=== PATIENT | female | born 1990 | race African-American/Black ===

== ENCOUNTER 2016-12-10 20:35 | Emergency (ER) | payer OTHER ==
[2016-12-10 20:45] VITALS: TEMP 97.8; BMI 25.3
--- NOTE | 2016-12-10 21:40 | PDOC ---
History of Present Illness - General History Source: Patient Exam Limitations: No Limitations - History of Present Illness Initial Comments: 12/10/16 22:06 The patient is a 26 year old female with a significant PMH of hypertension and asthma who presents to the emergency department with RLQ abdominal pain beginning at approximately 3:30PM today. She describes the abdominal pain as simultaneously sharp, pressuring, and cramping, at a 5/10 in severity at the time of exam. Patient notes that her abdominal pain was as high as 8/10 in severity earlier in the day. Patient denies radiation of the abdominal pain. She reports feeling the same pain last week, but decided not to visit the ER then. The patient reports daily control use that she started a few months ago. The patient denies vaginal bleeding or discharge. She notes that she has had multiple menstrual periods within the past month and a half. The patient denies chest pain, shortness of breath, headache and dizziness. Denies fever, chills, nausea, vomit, diarrhea and constipation. Denies dysuria, frequency, urgency and hematuria. Allergies: NKA Social history: Occasional alcohol use. No cigarette use. <Jose Luis Gallardo - Last Filed: 12/10/16 22:08> <Lauro Stone - Last Filed: 12/11/16 01:16> - General Chief Complaint: Pain Stated Complaint: PAIN IN LOWER ABDOMAN Time Seen by Provider: 12/10/16 21:34 Past History <Jose Luis Gallardo - Last Filed: 12/10/16 22:08> - Past Medical History Asthma: Yes Cardiac Disorders: Yes (PALPITATIONS) HTN: Yes (NO MEDS) Psychiatric Problems: Yes (NO MED) - Immunization History Td Vaccination: Yes Immunization Up to Date: Yes - Psycho/Social/Smoking Cessation Hx Anxiety: Yes Suicidal Ideation: No Smoking Status: No Smoking History: Never smoked Years of Tobacco Use: 0 Have you smoked in the past 12 months: No Number of Cigarettes Smoked Daily: 0 Cigars Per Day: 0 Information on smoking cessation initiated: No Hx Alcohol Use: No Drug/Substance Use Hx: No Substance Use Type: None <Lauro Stone - Last Filed: 12/11/16 01:16> - Past Medical History Allergies/Adverse Reactions: Allergies Allergy/AdvReac Type Severity Reaction Status Date / Time No Known Allergies Allergy Verified 12/10/16 20:45 Home Medications: Ambulatory Orders NK [No Known Home Medication] 12/11/16 Review of Systems - Review of Systems Comments:: 12/10/16 22:07 CONSTITUTIONAL: No fever, no chills, no fatigue EYES: No visual changes ENT: No ear pain, no sore throat CARDIOVASCULAR: No chest pain, no palpitations RESPIRATORY: No cough, no SOB GI: (+)RLQ abdominal pain. No nausea, no vomiting, no constipation, no diarrhea GENITOURINARY: No dysuria, no frequency, no hematuria MUSKULOSKELETAL: No backpain, no joint pain, no myalgias SKIN: No rash NEURO: No headache <Jose Luis Gallardo - Last Filed: 12/10/16 22:08> *Physical Exam - Vital Signs Last Vital Signs Temp Pulse Resp BP Pulse Ox 97.8 F 59 L 16 157/106 99 12/10/16 20:39 12/10/16 20:39 12/10/16 20:39 12/10/16 20:39 12/10/16 20:39 - Physical Exam Comments: 12/10/16 22:07 CONSTITUTIONAL: Well-appearing; well-nourished; in no apparent distress HEAD: Normocephalic; atraumatic EYES: PERRL; EOM intact ENMT: External appears normal; normal oropharynx NECK: Supple; non-tender; no cervical lymphadenopathy CARD: Normal S1, S2; no murmurs, rubs, or gallops RESP: Normal chest excursion with respiration; breath sounds clear and equal bilaterally; no wheezes, rhonchi, or rales ABD: (+) Minimal RLQ tenderness to palpation. Soft, non-distended; no palpable organomegaly, no palpable hernias EXT: Normal ROM in all four extremities; non-tender to palpation; distal pulses intact SKIN: Warm, dry, no rash NEURO: No focal neurological deficiencies. <Jose Luis Gallardo - Last Filed: 12/10/16 22:08> - Vital Signs Last Vital Signs Temp Pulse Resp BP Pulse Ox 97.8 F 59 L 16 157/106 99 12/10/16 20:39 12/10/16 20:39 12/10/16 20:39 12/10/16 20:39 12/10/16 20:39 <Lauro Stone - Last Filed: 12/11/16 01:16> ED Treatment Course - LABORATORY CBC & Chemistry Diagram: 12/10/16 22:00 12/10/16 22:00 <Lauro Stone - Last Filed: 12/11/16 01:16> Medical Decision Making - Medical Decision Making 12/11/16 01:12 26-year-old female presents to the ER with atraumatic right lower pelvic pain without associated nausea /vomiting/diarrhea/dysuria/vaginal bleeding. In the ER , patient is awake and alert, afebrile, nontoxic appearing. Initial evaluation revealed minimal right lower pelvic tenderness to deep palpation. Administration of IV Toradol, patient is asymptomatic and repeat abdominal exam reveals no focal tenderness. CBC/CMP within normal limit. Urinalysis reveals 18 RBCs per high-power field but no evidence of pyuria. Transvaginal ultrasound reveals no evidence of ovarian torsion. I do not suspect acute appendicitis at this time. Will discharge with abdominal pain instructions with [facility] follow- up. Initial evaluation, patient was noted to be hypertensive which improved after a period of observation. Patient will be instructed to follow-up further evaluation and treatment. <Lauro Stone - Last Filed: 12/11/16 01:16> *DC/Admit/Observation/Transfer - Attestations Scribe Attestion: 12/10/16 22:07 Documentation prepared by Jose Luis Gallardo, acting as medical technologist chief for Lauro Stone MD. <Jose Luis Gallardo - Last Filed: 12/10/16 22:08> - Attestations Physician Attestion: 12/11/16 01:11 The documentation was prepared by the scribe under my direct supervision. I have reviewed the documentation which correctly represents the findings, medical decision-making and critical action taken by me. <Lauro Stone - Last Filed: 12/11/16 01:16> Diagnosis at time of Disposition: Abdominal pain Qualifiers: Abdominal location: right lower quadrant Qualified Code(s): R10.31 - Right lower quadrant pain Hypertension Qualifiers: Hypertension type: essential hypertension Qualified Code(s): I10 - Essential ( primary) hypertension - Discharge Dispostion Disposition: HOME Condition at time of disposition: Stable - Referrals Referrals: [facility], one week [Other] - Patient Instructions Printed Discharge Instructions: DI for Abdominal Pain-Adult, High Blood Pressure - Post Discharge Activity Work/School Note: Back to Work
[2016-12-10] MEDS ORDERED: KETOROLAC TROMETHAMINE 30 MG/1 ML VIAL IVPUSH ONE (21:53)
[2016-12-10] MEDS ORDERED: KETOROLAC TROMETHAMINE 30 MG/1 ML VIAL ONE (22:14)
[2016-12-10 22:42] LABS: URINE APPEARANCE SLCLOUDY; URINE BILIRUBIN NEGATIVE (NEGATIVE); URINE BLOOD 2+ (NEGATIVE); URINE COLOR YELLOW; URINE GLUCOSE (UA) NEGATIVE (NEGATIVE); URINE KETONE TRACE (NEGATIVE); URINE NITRITE NEGATIVE (NEGATIVE); URINE PROTEIN NEGATIVE (NEGATIVE); URINE UROBILINOGEN NEGATIVE mg/dL (0.2-1.0)
[2016-12-10 22:44] LABS: URINE LEUK ESTERASE 1+ (NEGATIVE)
[2016-12-10 22:45] LABS: BASOPHIL 0.5 % (0-2.0); EOSINOPHIL 0.4 % (0-4.5); MCH 31.9 pg (25.7-33.7); MCHC 33.8 g/dl (32.0-36.0); MEAN CELL VOLUME 94.2 fl (80-96); MEAN PLT VOLUME 8.7 fl (7.5-11.1); NEUTROPHILS 62.3 % (42.8-82.8); PLATELET COUNT 208 K/MM3 (134-434); RDW 14.5 % (11.6-15.6); WHITE BLOOD COUNT 7.4 K/mm3 (4.0-10.0)
[2016-12-10 22:56] LABS: URINE BACTERIA RARE /hpf (NONE SEEN); URINE MUCUS FEW; URINE RBC 18 /hpf (0-3); URINE WBC 5 /hpf (3-5)
[2016-12-10 23:02] LABS: ALBUMIN 3.6 g/dl (3.4-5.0); ALK PHOS 46 U/L (45-117); ANION GAP 9 (8-16); BILIRUBIN,TOTAL 0.4 mg/dL (0.2-1.0); CALCIUM 9.3 mg/dL (8.5-10.1); CO2 27 mmol/L (21-32); CREATININE 0.9 mg/dL (0.55-1.02); GLUCOSE,RANDOM 80 mg/dL (74-106); SGOT/AST 27 U/L (15-37); SGPT/ALT 33 U/L (12-78); TOT PROT 7.2 g/dl (6.4-8.2)
[2016-12-11 00:42] VITALS: BP 145/88; PULSE 50
== END 2016-12-11 01:19 | disposition home or self-care (01) ==
LOC: JER 20:35
PROC: 3E0333Z Introduction of Anti-inflammatory into Peripheral Vein, Percutaneous Approach (ICD-10-PCS; principal; 2016-12-10)
DX: I10 Essential (primary) hypertension (principal); J45.909 Unspecified asthma, uncomplicated; F41.9 Anxiety disorder, unspecified
CPT/HCPCS: 36415; 76830-TC; 80053; 81003; 81015; 84703; 85025; 87086; 87186; 99282-25

== ENCOUNTER 2017-01-09 12:29 | Emergency (ER) | payer OTHER ==
[2017-01-09 12:44] VITALS: TEMP 98.1; BMI 28.2
--- NOTE | 2017-01-09 12:50 | PDOC ---
History of Present Illness - General History Source: Patient Exam Limitations: No Limitations - History of Present Illness Initial Comments: 01/09/17 13:14 The patient is a 26 year old female, with a significant past medical history of hypertension and anxiety, who presents to the emergency department complaining of a headache since approximately 16:00 yesterday. The patient reports her headache is localized frontally and is nonradiating. Patient states she thinks her headaches are caused, because of her elevated blood pressure. Patient reports her last blood pressure reading was 150/125 yesterday evening. Patient does not recall what blood pressure meds she is supposed to be on and has not taken anything for her headache. She denies any associated dizziness, lightheadedness, changes in vision, or ear pain. She denies any chest pain, shortness of breath, diaphoresis, or palpitations. She denies any abdominal pain , nausea, vomiting, diarrhea, constipation, or changes in urination patterns. She does not report any recent stressors. Patient is on control and her last menstrual period was 2 weeks ago. She denies any recent travel or sick contacts. Allergies: NKDA Past Surgical History: None reported. Social History: Social ETOH use. Non smoker or recreational drug use. <Paz Neumann - Last Filed: 01/09/17 13:17> <hCuy Garrett - Last Filed: 01/09/17 15:52> - General Chief Complaint: Blood Pressure Problem Stated Complaint: HEADACHE/BP Time Seen by Provider: 01/09/17 12:47 Past History <Paz Neumann - Last Filed: 01/09/17 13:17> - Past Medical History Asthma: Yes Cardiac Disorders: Yes (PALPITATIONS) HTN: Yes (WAS TAKING METROPROLOL) Psychiatric Problems: Yes (NO MED) - Immunization History Td Vaccination: Yes Immunization Up to Date: Yes - Psycho/Social/Smoking Cessation Hx Anxiety: Yes Suicidal Ideation: No Smoking Status: No Smoking History: Never smoked Years of Tobacco Use: 0 Have you smoked in the past 12 months: No Number of Cigarettes Smoked Daily: 0 Cigars Per Day: 0 Information on smoking cessation initiated: No Hx Alcohol Use: Yes (BEER) Drug/Substance Use Hx: No Substance Use Type: None <Chuy Garrett - Last Filed: 01/09/17 15:52> - Past Medical History Allergies/Adverse Reactions: Allergies Allergy/AdvReac Type Severity Reaction Status Date / Time No Known Allergies Allergy Verified 01/09/17 12:44 Home Medications: Ambulatory Orders NK [No Known Home Medication] 12/11/16 Review of Systems - Review of Systems Able to Perform ROS?: Yes Comments:: 01/09/17 13:14 GENERAL/CONSTITUTIONAL: No fever or chills. No weakness. HEAD, EYES, EARS, NOSE AND THROAT: No change in vision. No ear pain or discharge. No sore throat. CARDIOVASCULAR: No chest pain or shortness of breath. RESPIRATORY: No cough, wheezing, or hemoptysis. GASTROINTESTINAL: No nausea, vomiting, diarrhea or constipation. GENITOURINARY: No dysuria, frequency, or change in urination. MUSCULOSKELETAL: No joint or muscle swelling or pain. No neck or back pain. SKIN: No rash NEUROLOGIC: Yes: +headache. No vertigo, loss of consciousness, or change in strength/sensation. ENDOCRINE: No increased thirst. No abnormal weight change. HEMATOLOGIC/LYMPHATIC: No anemia, easy bleeding, or history of blood clots. ALLERGIC/IMMUNOLOGIC: No hives or skin allergy. <Paz Neumann - Last Filed: 01/09/17 13:17> *Physical Exam - Vital Signs Last Vital Signs Temp Pulse Resp BP Pulse Ox 98.1 F 65 18 142/90 98 01/09/17 12:42 01/09/17 12:42 01/09/17 12:42 01/09/17 12:42 01/09/17 12:42 - Physical Exam Comments: 01/09/17 13:15 GENERAL: Awake, alert, and fully oriented, in no acute distress HEAD: No signs of trauma EYES: PERRLA, EOMI, sclera anicteric, conjunctiva clear ENT: Auricles normal inspection, hearing grossly normal, nares patent, oropharynx clear without exudates. Moist mucosa NECK: Normal ROM, supple, no lymphadenopathy, JVD, or masses LUNGS: Breath sounds equal, clear to auscultation bilaterally. No wheezes, and no crackles HEART: Regular rate and rhythm, normal S1 and S2, no murmurs, rubs or gallops ABDOMEN: Soft, nontender, normoactive bowel sounds. No guarding, no rebound. No masses EXTREMITIES: Normal range of motion, no edema. No clubbing or cyanosis. No cords, erythema, or tenderness NEUROLOGICAL: Cranial nerves II through XII grossly intact. Normal speech, normal gait SKIN: Warm, Dry, normal turgor, no rashes or lesions noted. <Paz Neumann - Last Filed: 01/09/17 13:17> - Vital Signs Last Vital Signs Temp Pulse Resp BP Pulse Ox 98.1 F 65 18 142/90 98 01/09/17 12:42 01/09/17 12:42 01/09/17 12:42 01/09/17 12:42 01/09/17 12:42 <Chuy Garrett - Last Filed: 01/09/17 15:52> ED Treatment Course - LABORATORY CBC & Chemistry Diagram: 01/09/17 13:34 01/09/17 13:24 <Chuy Garrett - Last Filed: 01/09/17 15:52> Medical Decision Making - Medical Decision Making All diagnostics WNL, BP Improved with Catapress (0.2) Will write for prn Catapress until she can see her doctor next week (today is Thursday) 01/09/17 15:48 <Chuy Garrett - Last Filed: 01/09/17 15:52> *DC/Admit/Observation/Transfer - Attestations Scribe Attestion: 01/09/17 13:15 Documentation prepared by Paz Neumann, acting as medical photographer for Chuy Garrett DO. <Paz Neumann - Last Filed: 01/09/17 13:17> - Discharge Dispostion Admit: No - Attestations Physician Attestion: 01/09/17 12:50 I, Dr. Chuy Garrett, attest that this document has been prepared under my direction and personally reviewed by me in its entirety. I further attest, that it accurately reflects all work, treatment, procedures and medical decision -making performed by me. <Chuy Garrett - Last Filed: 01/09/17 15:52> Diagnosis at time of Disposition: Uncontrolled hypertension, Anxiety - Discharge Dispostion Disposition: HOME Condition at time of disposition: Improved - Patient Instructions Printed Discharge Instructions: DI for High Blood Pressure Additional Instructions: Nohelia- Sorry that you do not feel well and your pressure is up. Use the catapress only if your BP is high and you have a headache. See your doctor next week for BP medication. Return to us if any problems. Michael- Dr. Chuy Garrett
[2017-01-09] MEDS ORDERED: cloNIDine HCL 0.1 MG TABLET PO ONE (13:20)
[2017-01-09 13:46] LABS: BASOPHIL 0.7 % (0-2.0); EOSINOPHIL 1.2 % (0-4.5); MCH 31.4 pg (25.7-33.7); MCHC 33.5 g/dl (32.0-36.0); MEAN CELL VOLUME 93.7 fl (80-96); NEUTROPHILS 60.9 % (42.8-82.8); PLATELET COUNT 180 K/MM3 (134-434); RDW 13.5 % (11.6-15.6); WHITE BLOOD COUNT 6.9 K/mm3 (4.0-10.0)
[2017-01-09 13:52] LABS: URINE APPEARANCE SLCLOUDY; URINE BILIRUBIN NEGATIVE (NEGATIVE); URINE BLOOD 2+ (NEGATIVE); URINE COLOR YELLOW; URINE GLUCOSE (UA) NEGATIVE (NEGATIVE); URINE KETONE NEGATIVE (NEGATIVE); URINE LEUK ESTERASE NEGATIVE (NEGATIVE); URINE NITRITE NEGATIVE (NEGATIVE); URINE PROTEIN NEGATIVE (NEGATIVE); URINE UROBILINOGEN NEGATIVE mg/dL (0.2-1.0)
[2017-01-09 14:21] LABS: ALBUMIN 3.3 g/dl (3.4-5.0); ANION GAP 10 (8-16); BILIRUBIN,TOTAL 0.6 mg/dL (0.2-1.0); CALCIUM 8.5 mg/dL (8.5-10.1); CO2 24 mmol/L (21-32); CREATININE 0.8 mg/dL (0.55-1.02); GLUCOSE,RANDOM 85 mg/dL (74-106); SGOT/AST 20 U/L (15-37); SGPT/ALT 34 U/L (12-78); TOT PROT 6.4 g/dl (6.4-8.2)
[2017-01-09 14:23] LABS: ALK PHOS 43 U/L (45-117); CPK 81 IU/L (26-192); TROPONIN I < 0.02 ng/ml (0.00-0.05)
[2017-01-09 14:28] LABS: URINE MUCUS RARE; URINE RBC 9 /hpf (0-3); URINE WBC 1 /hpf (3-5)
[2017-01-09] MEDS ORDERED: cloNIDine HCL 0.1 MG TABLET ONE (14:31)
[2017-01-09 22:51] VITALS: BP 117/64; PULSE 74
--- NOTE | 2017-01-10 09:25 | EKG ---
Test Reason : Blood Pressure : / mmHG Vent. Rate : 061 BPM Atrial Rate : 061 BPM P-R Int : 168 ms QRS Dur : 094 ms QT Int : 448 ms P-R-T Axes : 061 -18 -03 degrees QTc Int : 450 ms NORMAL SINUS RHYTHM WITH SINUS ARRHYTHMIA INCOMPLETE RIGHT BUNDLE BRANCH BLOCK T WAVE ABNORMALITY, CONSIDER ANTERIOR ISCHEMIA T WAVE ABNORMALITY, CONSIDER INFERIOR ISCHEMIA ABNORMAL ECG WHEN COMPARED WITH ECG OF 15-MAY-2011 05:17, NO SIGNIFICANT CHANGE WAS FOUND Confirmed by MD KURTIS, MIAN ([id number]) on 01/10/2017 9:24:33 AM Referred By: Confirmed By:MIAN HULL MD
== END 2017-01-09 16:00 | disposition home or self-care (01) ==
LOC: JER 12:29
DX: I10 Essential (primary) hypertension (principal); F41.9 Anxiety disorder, unspecified; J45.909 Unspecified asthma, uncomplicated; R00.2 Palpitations
CPT/HCPCS: 36415; 71010-TC; 80053; 81003; 81015; 84484; 84703; 85025; 93005; 93010; 99284-25

== ENCOUNTER 2017-02-11 17:54 | Emergency (ER) | payer OTHER ==
[2017-02-11 17:59] VITALS: BMI 22.6
--- NOTE | 2017-02-11 20:19 | PDOC ---
*Physical Exam - Vital Signs Last Vital Signs Temp Pulse Resp BP Pulse Ox 98.4 F 70 18 147/106 99 02/11/17 17:57 02/11/17 17:57 02/11/17 17:57 02/11/17 17:57 02/11/17 17:57 ED Treatment Course - LABORATORY CBC & Chemistry Diagram: 02/11/17 20:47 02/11/17 20:47 Medical Decision Making - Medical Decision Making 02/12/17 01:09 Pt seen by the Advanced Practice Provider under my direct supervision Ancillary studies reviewed I agree with plan as outlined by the Advanced Practice Provider In summary, 26-year-old female presents with 1 week of vomiting associated with epigastric burning sensation. Patient reports one episode of blood-tinged emesis after 5 episodes of vomiting earlier today consistent with krystal mcgee tear. Otherwise emesis is nonbloody and nonbilious. Patient denies any diarrhea. Had a normal bowel movement today. She reports multiple episodes of similar symptoms in the past that have been attributed to GERD and gastritis per her report. On my evaluation, patient is well-appearing, still complaining of nausea but with no complaints of abdominal pain. Abdominal exam is completely benign with no tenderness to palpation. Given her persistent nausea despite zofran, I ordered reglan after which she reports nausea is greatly improved. She passed PO challenge. Will discharge to follow up with her primary care doctor. She reports she has an appointment with GI in 2 weeks as well. *DC/Admit/Observation/Transfer Diagnosis at time of Disposition: Dehydration, mild Nausea & vomiting Qualifiers: Qualified Code(s): R11.2 - Nausea with vomiting, unspecified - Discharge Dispostion Disposition: HOME - Prescriptions Prescriptions: Sucralfate [Carafate -] 1 gm PO QID #20 tablet - Patient Instructions Printed Discharge Instructions: DI for Gastroesophageal Reflux Disease (GERD) Additional Instructions: follow up with your GI doctor as soon as possible. take carafate as prescribed. drink plenty of fluids. - Post Discharge Activity Forms/Work/School Notes: Back to Work
[2017-02-11] MEDS ORDERED: FAMOTIDINE 20 MG/50 ML IVPB 50 ML IVPB ONE ×2 (20:39→20:51)
[2017-02-11] MEDS ORDERED: SODIUM CHLORIDE 1,000 ML IV STA (20:39)
[2017-02-11] MEDS ORDERED: ONDANSETRON 4 MG/2 ML VIAL IVPB ONE (20:39)
--- NOTE | 2017-02-11 20:40 | PDOC ---
History of Present Illness - General Chief Complaint: Pain Stated Complaint: VOMITING WITH BLOOD Time Seen by Provider: 02/11/17 20:12 History Source: Patient - History of Present Illness Initial Comments: 02/11/17 20:55 26 year old female Complaining of vomiting for one week with epigastric/chest burning, and blood tinged vomitus, generalized abdominal discomfort. Patient denies constipation or diarrhea last bowel movement normal. Denies headache dizziness urinary symptoms. Patient has a history of GERD and hypertension. Currently on Zantac, unable to take Zantac due to the vomiting. LMP 2 weeks ago. Past History - Past Medical History Allergies/Adverse Reactions: Allergies Allergy/AdvReac Type Severity Reaction Status Date / Time No Known Allergies Allergy Verified 02/11/17 17:59 Home Medications: Ambulatory Orders Clonidine HCl [Catapres] 0.2 mg PO TID #30 tablet 01/09/17 Sucralfate [Carafate -] 1 gm PO QID #20 tablet 02/12/17 Asthma: Yes Cardiac Disorders: Yes (PALPITATIONS) HTN: Yes (WAS TAKING METROPROLOL) Psychiatric Problems: Yes (NO MED) - Immunization History Td Vaccination: Yes Immunization Up to Date: Yes - Suicide/Smoking/Psychosocial Hx Smoking Status: No Smoking History: Never smoked Years of Tobacco Use: 0 Have you smoked in the past 12 months: No Number of Cigarettes Smoked Daily: 0 Cigars Per Day: 0 Information on smoking cessation initiated: No Hx Alcohol Use: No Drug/Substance Use Hx: No Substance Use Type: None Review of Systems - Review of Systems Able to Perform ROS?: Yes Is the patient limited Frisian proficient: No Constitutional: No: Symptoms Reported, See HPI, Chills, Diaphoresis, Fever, Loss of Appetite, Malaise, Night Sweats, Weakness, Weight Stable, Unintentional Wgt. Loss, Unexplained wgt Loss, Other Respiratory: No: Symptoms reported, See HPI, Cough, Orthopnea, Shortness of Breath, SOB with Exertion, SOB at Rest, Stridor, Wheezing, Productive cough, Hemoptysis, Other Cardiac (ROS): Yes: Chest Pain. No: Symptoms Reported, See HPI, Edema, Irregular Heart Rate, Lightheadedness, Palpitations, Syncope, Chest Tightness, Other ABD/GI: Yes: Nausea, Vomiting, Abdominal cramping, Other (bloos streaked vomitus ). No: Symptoms Reported, See HPI, Abdominal Distended, Abd. Pain w/ defecation , Blood Streaked Bowels, Constipated, Diarrhea, Difficulty Swallowing, Poor Appetite, Poor Fluid Intake, Rectal Bleeding, Indigestion, Tarry Stools : No: Symptoms Reported, See HPI, Burning, Dysuria, Discharge, Frequency, Flank Pain, Hematuria, Incontinence, Pain, Urgency, Testicular Mass, Testicular Swelling, Lesions, Testicular Pain, Other Integumentary: No: Symptoms Reported, See HPI, Bruising, Change in Color, Change in Hair/Nails, Dryness, Erythema, Flushing, Lesions, Lumps, Pallor, Pruritus, Rash, Sweating, Other *Physical Exam - Vital Signs Last Vital Signs Temp Pulse Resp BP Pulse Ox 98.4 F 70 18 147/106 99 02/11/17 17:57 02/11/17 17:57 02/11/17 17:57 02/11/17 17:57 02/11/17 17:57 - Physical Exam General Appearance: Yes: Appropriately Dressed Respiratory/Chest: positive: Lungs Clear, Normal Breath Sounds Cardiovascular: positive: Regular Rhythm, Regular Rate Gastrointestinal/Abdominal: positive: Tender (generalized), Soft, Increased Bowel Sounds Extremity: positive: Normal Capillary Refill, Normal Inspection Integumentary: positive: Normal Color, Dry, Warm Neurologic: positive: Fully Oriented, Alert, Normal Mood/Affect ED Treatment Course - LABORATORY CBC & Chemistry Diagram: 02/11/17 20:47 02/11/17 20:47 Progress Note - Progress Note Progress Note: A: GERD nausea and vomiting P: cbc cmp ua hcg pepcid, antiemetics carafate Medical Decision Making - Medical Decision Making 02/11/17 23:02 no abdominal tenderness. reports slight nausea. improved. will give reglan and carafate and reevaluate. 02/12/17 01:06 tolerated PO. reports feeling better. will d/c home *DC/Admit/Observation/Transfer Diagnosis at time of Disposition: Dehydration, mild Nausea & vomiting Qualifiers: Vomiting type: unspecified Vomiting Intractability: non-intractable Qualified Code(s): R11.2 - Nausea with vomiting, unspecified - Discharge Dispostion Disposition: HOME - Prescriptions Prescriptions: Sucralfate [Carafate -] 1 gm PO QID #20 tablet - Patient Instructions Printed Discharge Instructions: DI for Gastroesophageal Reflux Disease (GERD) Additional Instructions: follow up with your GI doctor as soon as possible. take carafate as prescribed. drink plenty of fluids. - Post Discharge Activity Forms/Work/School Notes: Back to Work
[2017-02-11] MEDS ORDERED: ONDANSETRON 4 MG/2 ML VIAL ONE (20:50)
[2017-02-11 20:54] LABS: BASOPHIL 0.3 % (0-2.0); EOSINOPHIL 0.1 % (0-4.5); MCH 31.8 pg (25.7-33.7); MCHC 34.2 g/dl (32.0-36.0); MEAN CELL VOLUME 92.9 fl (80-96); MEAN PLT VOLUME 7.9 fl (7.5-11.1); NEUTROPHILS 86.6 % (42.8-82.8); PLATELET COUNT 274 K/MM3 (134-434); RDW 13.3 % (11.6-15.6); WHITE BLOOD COUNT 9.3 K/mm3 (4.0-10.0)
[2017-02-11 21:19] LABS: ALBUMIN 3.9 g/dl (3.4-5.0); ALK PHOS 55 U/L (45-117); ANION GAP 11 (8-16); BILIRUBIN,TOTAL 1.6 mg/dL (0.2-1.0); CALCIUM 9.4 mg/dL (8.5-10.1); CO2 27 mmol/L (21-32); GLUCOSE,RANDOM 101 mg/dL (74-106); SGOT/AST 26 U/L (15-37); SGPT/ALT 41 U/L (12-78); TOT PROT 7.8 g/dl (6.4-8.2)
[2017-02-11] MEDS ORDERED: METOCLOPRAMIDE HCL INJECTION 10 MG/2 ML VIAL IVPB ONE (22:50)
[2017-02-11] MEDS ORDERED: SODIUM CHLORIDE 0.9% 500 ML INFUS.BAG IV ONE (22:51)
[2017-02-11] MEDS ORDERED: SUCRALFATE 1 GM TABLET (FP) PO ONE (23:15)
[2017-02-11] MEDS ORDERED: METOCLOPRAMIDE HCL INJECTION 10 MG/2 ML VIAL ONE (23:22)
[2017-02-11] MEDS ORDERED: SUCRALFATE 1 GM TABLET (FP) ONE (23:22)
[2017-02-12 00:58] LABS: URINE APPEARANCE SLCLOUDY; URINE BILIRUBIN NEGATIVE (NEGATIVE); URINE BLOOD 3+ (NEGATIVE); URINE COLOR AMBER; URINE GLUCOSE (UA) NEGATIVE (NEGATIVE); URINE KETONE 2+ (NEGATIVE); URINE NITRITE NEGATIVE (NEGATIVE)
[2017-02-12 01:00] LABS: URINE PROTEIN 1+ (NEGATIVE)
[2017-02-12 01:02] LABS: URINE BACTERIA RARE /hpf (NONE SEEN); URINE HYALINE CAST 9 /lpf; URINE MUCUS MANY; URINE RBC 108 /hpf (0-3); URINE WBC 6 /hpf (3-5)
[2017-02-12 01:38] VITALS: BP 117/75; PULSE 83; TEMP 99
[2017-02-12 10:54] LABS: URINE LEUK ESTERASE Negative (NEGATIVE)
== END 2017-02-12 01:39 | disposition home or self-care (01) ==
LOC: JER 17:54
PROC: 3E033GC Introduction of Other Therapeutic Substance into Peripheral Vein, Percutaneous Approach (ICD-10-PCS; principal; 2017-02-11)
PROC: 3E0337Z Introduction of Electrolytic and Water Balance Substance into Peripheral Vein, Percutaneous Approach (ICD-10-PCS; 2017-02-11)
DX: E86.0 Dehydration (principal); R11.2 Nausea with vomiting, unspecified
CPT/HCPCS: 36415; 80053; 81003; 81015; 83690; 84703; 85025; 99282-25

== ENCOUNTER 2017-07-05 10:14 | Emergency (ER) | payer OTHER ==
[2017-07-05 10:26] VITALS: BP 122/88; PULSE 84; TEMP 98.4; BMI 24.2
[2017-07-05 10:57] LABS: URINE APPEARANCE CLEAR; URINE BILIRUBIN NEGATIVE (NEGATIVE); URINE BLOOD 3+ (NEGATIVE); URINE COLOR ORANGE; URINE GLUCOSE (UA) NEGATIVE (NEGATIVE); URINE KETONE TRACE (NEGATIVE); URINE NITRITE NEGATIVE (NEGATIVE); URINE UROBILINOGEN 0.2 mg/dL (0.2-1.0)
[2017-07-05 11:00] LABS: URINE LEUK ESTERASE 2+ (NEGATIVE); URINE PROTEIN 2+ (NEGATIVE)
[2017-07-05 11:01] LABS: EPI CELLS FEW /HPF (FEW); URINE MUCUS MODERATE; YEAST RARE
[2017-07-05] MEDS ORDERED: PHENAZOPYRIDINE HCL 100 MG TABLET (FP) PO ONE (11:12)
[2017-07-05] MEDS ORDERED: NITROFURANTOIN MACROCRYSTAL 50 MG CAPSULE (FP) PO SCH (11:15)
[2017-07-05] MEDS ORDERED: PHENAZOPYRIDINE HCL 100 MG TABLET (FP) ONE (11:22)
[2017-07-05] MEDS ORDERED: NITROFURANTOIN MACROCRYSTAL 50 MG CAPSULE (FP) ONE (11:22)
--- NOTE | 2017-07-05 11:25 | PDOC ---
History of Present Illness - General Chief Complaint: Urinary Problem Stated Complaint: POSSIBLE UTI Time Seen by Provider: 07/05/17 10:42 - History of Present Illness Initial Comments: 07/05/17 11:20 CHIEF COMPLAINT: urinary symptoms HISTORY OF PRESENT ILLNESS: 26 yo F with hx of recurrent UTIs presents to fast track with urinary urgency, frequency, and suprapubic pain. Patient states she went drinking last night and started feeling symptoms this morning. She denies any back pain, fever, chills, nausea, vomiting, diarrhea. No recent travel or sick contacts. PAST MEDICAL HISTORY: Denies past medical history FAMILY HISTORY: Denies SOCIAL HISTORY: Denies tobacco, alcohol, illicit drug use. SURGICAL HISTORY: Denies ALLERGIES: No known drug allergies REVIEW OF SYSTEMS General/Constitutional: Denies fever or chills. HEENT: Denies change in vision. Denies ear pain or discharge. Denies sore throat. Cardiovascular: Denies chest pain or shortness of breath. Respiratory: Denies cough, wheezing, or hemoptysis. Gastrointestinal: Denies nausea, vomiting, diarrhea. Genitourinary: Urinary frequency and dysuria. PHYSICAL EXAM General Appearance: Well-appearing, appropriately dressed. No apparent distress. HEENT: EOMI, PERRLA, normal ENT inspection, normal voice, TMs normal, pharynx normal. No conjunctival pallor. No photophobia, scleral icterus. Respiratory/Chest: Lungs CTAB. Cardiovascular: RRR. S1, S2. Gastrointestinal/Abdominal: Normal bowel sounds. Abdomen soft, non-distended. No tenderness or rebound tenderness. No organomegaly, pulsatile mass, guarding , hernia, hepatomegaly, splenomegaly. Musculoskeletal/Extremities: Normal inspection. FROM of all extremities, normal capillary refill. Pelvis Stable. No CVA tenderness. No tenderness to extremities, pedal edema, swelling, erythema or deformity. Integumentary: Appropriate color, dry, warm. No cyanosis, erythema, jaundice or rash Neurologic: manager of financial II-XII intact. Fully oriented, alert. Appropriate mood/affect. Motor strength 5/5. No appreciable EOM palsy, facial droop or sensory deficit. Past History - Past Medical History Allergies/Adverse Reactions: Allergies Allergy/AdvReac Type Severity Reaction Status Date / Time No Known Allergies Allergy Verified 07/05/17 10:20 Home Medications: Ambulatory Orders Nitrofurantoin Monohyd/M-Cryst [Macrobid -] 100 mg PO BID #19 capsule 07/05/17 Phenazopyridine HCl [Azo Standard] 95 mg PO TID PRN #12 tablet 07/05/17 Asthma: Yes Cardiac Disorders: Yes (PALPITATIONS) COPD: No HTN: Yes (WAS TAKING METROPROLOL) Psychiatric Problems: Yes (anxeity) - Immunization History Td Vaccination: Yes Immunization Up to Date: Yes - Suicide/Smoking/Psychosocial Hx Smoking Status: No Smoking History: Never smoked Years of Tobacco Use: 0 Have you smoked in the past 12 months: No Number of Cigarettes Smoked Daily: 0 Cigars Per Day: 0 Information on smoking cessation initiated: No Hx Alcohol Use: No Drug/Substance Use Hx: No Substance Use Type: None *Physical Exam - Vital Signs Last Vital Signs Temp Pulse Resp BP Pulse Ox 98.4 F 84 16 122/88 100 07/05/17 10:21 07/05/17 10:21 07/05/17 10:21 07/05/17 10:21 07/05/17 10:21 ED Treatment Course - ADDITIONAL ORDERS Additional order review: Laboratory Results 07/05/17 10:55 Urine Color [place] Urine Appearance Clear Urine pH 6.0 Ur Specific [place] >= 1.030 Urine Protein 2+ H Urine Glucose (UA) Negative Urine Ketones Trace H Urine Blood 3+ H Urine Nitrite Negative Urine Bilirubin Negative Urine Urobilinogen 0.2 Ur Leukocyte Esterase 2+ H Urine WBC (Auto) 1302 Urine RBC (Auto) 212 Ur Epithelial Cells Few Urine Mucus Moderate Urine Yeast Rare Medical Decision Making - Medical Decision Making 07/05/17 11:24 26 yo F with hx of recurrent UTIs presents to fast track with urinary urgency, frequency, and suprapubic pain. -UA, Ucx UA +for UTI Will d/c with Macrobid and azo. *DC/Admit/Observation/Transfer Diagnosis at time of Disposition: Urinary tract infection Qualifiers: Urinary tract infection type: site unspecified Hematuria presence: with hematuria Qualified Code(s): N39.0 - Urinary tract infection, site not specified ; R31.9 - Hematuria, unspecified; R31.9 - Hematuria, unspecified - Discharge Dispostion Disposition: HOME Condition at time of disposition: Stable Admit: No - Prescriptions Prescriptions: Nitrofurantoin Monohyd/M-Cryst [Macrobid -] 100 mg PO BID #19 capsule Phenazopyridine HCl [Azo Standard] 95 mg PO TID PRN #12 tablet PRN Reason: Pain - Referrals - Patient Instructions Printed Discharge Instructions: DI for Urinary Tract Infection (UTI) Additional Instructions: Please take medications as prescribed. Drink plenty of fluids to help flush out the infection. Follow up with your primary care doctor if symptoms persist. If you develop any fever, chills, nausea, vomiting, or diarrhea, please return to the ER. - Post Discharge Activity
== END 2017-07-05 11:29 | disposition home or self-care (01) ==
LOC: JER 10:14 → JERFT 10:14
DX: N39.0 Urinary tract infection, site not specified (principal); R31.9 Hematuria, unspecified; Z87.440 Personal history of urinary (tract) infections
CPT/HCPCS: 81003; 81015; 87086; 99281-25

== ENCOUNTER 2018-05-08 17:02 | Emergency (ER) | payer OTHER ==
[2018-05-08 17:22] VITALS: BP 122/83; PULSE 91; TEMP 101.5; BMI 52.1
--- NOTE | 2018-05-08 18:08 | PDOC ---
History of Present Illness - General Chief Complaint: Pain, Acute Stated Complaint: HEADACHE, ABDOMINAL PAIN, VOMITING Time Seen by Provider: 05/08/18 17:49 History Source: Patient Exam Limitations: No Limitations - History of Present Illness Initial Comments: 05/08/18 18:08 Patient is a 27 year old female with a PMHx of HTN who presents here today for full body aches associated with runny nose, subjective fevers and chills that started yesterday. According to the patient, her daughter was tested positive for influenza yesterday and is currently on medication. Patient was concerned she had the Flu and was unable to go to work due to the symptoms, which prompted this hospital visit. Patient at fast track was found to have a fever of 101.5 and transferred to the main ED. Otherwise, patient denies any cough, chest pain, palpitations, shortness of breath, loss of consciousness, neck pain , acute vision changes, urinary or bowel symptoms. PMHx: HTN PSHx: Denies Social Hx: Denies smoking Denies Alcohol use Denies drugs Family Hx: Mother- CAD and HTN ALLERGIES: Denies Past History - Past Medical History Allergies/Adverse Reactions: Allergies Allergy/AdvReac Type Severity Reaction Status Date / Time No Known Allergies Allergy Verified 07/05/17 10:20 Home Medications: Ambulatory Orders Oseltamivir Phosphate [Tamiflu -] 75 mg PO BID #10 capsule 05/08/18 Asthma: Yes Cardiac Disorders: Yes (PALPITATIONS) COPD: No HTN: Yes Psychiatric Problems: Yes (BIPOLAR- NO MEDS) - Immunization History Td Vaccination: Yes Immunization Up to Date: Yes - Suicide/Smoking/Psychosocial Hx Smoking Status: No Smoking History: Never smoked Years of Tobacco Use: 0 Have you smoked in the past 12 months: No Number of Cigarettes Smoked Daily: 0 Cigars Per Day: 0 Hx Alcohol Use: No Drug/Substance Use Hx: No Substance Use Type: None Review of Systems - Review of Systems Constitutional: Yes: Chills, Diaphoresis, Fever, Loss of Appetite, Malaise, Weakness. No: Night Sweats HEENTM: Yes: Nose Congestion. No: Blurred Vision, Tearing, Double Vision, Nose Bleeding, Hearing Loss, Throat Pain, Throat Swelling, Mouth Pain, Difficulty Swallowing, Mouth Swelling Respiratory: No: Cough, Orthopnea, Shortness of Breath, SOB with Exertion, SOB at Rest, Wheezing, Productive cough, Hemoptysis Cardiac (ROS): No: Chest Pain, Edema, Lightheadedness, Palpitations, Syncope, Chest Tightness ABD/GI: No: Abdominal Distended, Abd. Pain w/ defecation, Constipated, Diarrhea , Nausea, Vomiting, Indigestion : No: Burning, Dysuria, Discharge, Frequency, Flank Pain, Hematuria Musculoskeletal: Yes: Back Pain. No: Joint Pain, Joint Swelling, Muscle Pain, Muscle Weakness, Neck Pain Integumentary: No: Bruising, Change in Color, Erythema, Flushing Neurological: Yes: Headache. No: Numbness, Seizure, Tingling, Tremors, Weakness *Physical Exam - Vital Signs Last Vital Signs Temp Pulse Resp BP Pulse Ox 101.5 F H 91 H 18 122/83 99 05/08/18 17:17 05/08/18 17:17 05/08/18 17:17 05/08/18 17:17 05/08/18 17:17 - Physical Exam General Appearance: Yes: Other (Awake, alert, oriented x3. In no acute distress ) HEENT: positive: EOMI, Normal Voice, Symmetrical, Pharynx Normal, Rhinorrhea. negative: Tonsillar Exudate, Tonsillar Erythema, Sinus Tenderness Neck: positive: Supple. negative: Decreased range of motion, Lymphadenopathy (R ), Lymphadenopathy (L) Respiratory/Chest: positive: Lungs Clear, Normal Breath Sounds. negative: Respiratory Distress, Accessory Muscle Use, Crackles, Rhonchi, Wheezing Cardiovascular: positive: Regular Rhythm, Regular Rate, S1, S2. negative: Edema , JVD, Murmur Gastrointestinal/Abdominal: positive: Normal Bowel Sounds, Flat, Soft. negative : Organomegaly, Rebound, Tenderness Extremity: positive: Normal Capillary Refill, Normal Inspection, Normal Range of Motion. 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 Had a discussion with the patient in regards to the pros and cons of prescribing Tamiflu. Patient decided she wants to be treated with Tamiflu. Explained the importance of also staying hydrated with a lot of fluids such as water and alternate between Motrin and Tylenol every three hours. Recommended to follow up with PCP if symptoms do not improve and to return to the ED if symptoms worsen. Patient to be discharged *DC/Admit/Observation/Transfer Diagnosis at time of Disposition: Influenza-like illness - Discharge Dispostion Disposition: HOME Condition at time of disposition: Stable Decision to Admit order: No - Prescriptions Prescriptions: Oseltamivir Phosphate [Tamiflu -] 75 mg PO BID #10 capsule - Referrals - Patient Instructions Additional Instructions: -You were seen here for Flu like symptoms. You likely have the flu because you were exposed to your daughter who has the flu. RECOMMENDATIONS: -Stay hydrated with lots of water. -Alternate between Motrin and Tylenol every three hours. -You should have lots of bed rest. -Practice good hand hygiene by washing hands and avoid contact with people around you. -A prescription for Tamiflu was sent to your pharmacy. Please pick it up today. -If symptoms persist or worsen, return to the emergency department. -Please follow up with your primary care doctor if symptoms do not improve - Post Discharge Activity Forms/Work/School Notes: Back to Work
--- NOTE | 2018-05-08 18:09 | PDOC ---
Attending Attestation - Resident Resident Name: Donna León - ED Attending Attestation I have performed the following: I have examined & evaluated the patient, The case was reviewed & discussed with the resident, I agree w/resident's findings & plan, Exceptions are as noted - Medical Decision Making 05/08/18 18:27 History and examination consistent with influenza-like illness. Patient's daughter is flu positive. Patient is well-appearing no neck stiffness stable vital signs Discussion had with patient regarding pros and cons of Tamiflu. Patient would like to initiate treatment Findings, the need for follow-up and strict return instructions discussed patient. <Srinivasan Golden - Last Filed: 05/08/18 18:27> - HPI HPI: The patient is a 27 year old female, with a significant past medical history of hypertension, anxiety, asthma who presents to the emergency department with flu- like symptoms that began today. Patient reports diffuse body aches, and associated subjective fever, chills, or nausea. She denies coughing but reports runny nose and sinus congestion. She reports that her daughter is flu +. She denies recent headache or dizziness. She denies recent vomit, diarrhea or constipation. She denies recent dysuria, frequency, urgency or hematuria. She denies recent chest pain or shortness of breath. - Physicial Exam PE: Vitals: Triage Vital signs reviewed. Temp 101.5 at triage General Appearance: no acute distress, well nourished well developed Neck: Supple; No Nuchal rigidity Chest Wall: Nontender Cardiac: Regular rate and rhythm, no murmurs, no rubs, no gallops Lungs: Clear to auscultation bilateral, good air movement bilaterally Neuro: AOX3; Strength intact to all extremities, Sensation intact to all extremities, gait normal <Monica Saleem - Last Filed: 05/08/18 18:32>
== END 2018-05-08 18:33 | disposition home or self-care (01) ==
LOC: JER 17:02
DX: J11.1 Influenza due to unidentified influenza virus with other respiratory manifestations (principal); I10 Essential (primary) hypertension
CPT/HCPCS: 99282-25

== ENCOUNTER 2018-09-14 14:35 | Emergency (ER) | payer OTHER | END 2018-09-14 15:15 | disposition home or self-care (01) | LOC: JERFT 14:35 ==

== ENCOUNTER 2018-12-01 15:56 | Emergency (ER) | payer OTHER ==
[2018-12-01 16:03] VITALS: BP 124/73; PULSE 73; TEMP 98.4; BMI 24.2
--- NOTE | 2018-12-01 16:03 | PDOC ---
Rapid Medical Evaluation Chief Complaint: Allergic Reaction Time Seen by Provider: 12/01/18 16:00 Medical Evaluation: Allergies Allergy/AdvReac Type Severity Reaction Status Date / Time No Known Allergies Allergy Verified 09/14/18 14:45 12/01/18 16:01 I have performed a brief in-person evaluation of this patient. The patient presents with a chief complaint of:Tongue swelling 15 min ago, no voice changes, SOB, rash/itching. No obvious inciting factors. Had prior episodes and tx w/ meds/epipen. No incubations. No known allergies Pertinent physical exam findings:, stable and well kelsey w/ no obvious angioedema I have ordered the following:nothing The patient will proceed to the ED for further evaluation. Discharge Disposition - Diagnosis Tongue swelling - Discharge Dispostion Condition at time of disposition: Stable - Referrals - Patient Instructions - Post Discharge Activity
[2018-12-01] MEDS ORDERED: diphenhydrAMINE HCL 25 MG CAPSULE (FP) PO ONE ×2 (16:04→16:15)
--- NOTE | 2018-12-01 16:42 | PDOC ---
History of Present Illness - General Chief Complaint: Allergic Reaction Stated Complaint: ALLERGIC REACTION Time Seen by Provider: 12/01/18 16:00 History Source: Patient Exam Limitations: No Limitations Past History - Past Medical History Allergies/Adverse Reactions: Allergies Allergy/AdvReac Type Severity Reaction Status Date / Time No Known Allergies Allergy Verified 12/01/18 16:12 Home Medications: Ambulatory Orders NK [No Known Home Medication] 12/01/18 Asthma: Yes Cardiac Disorders: Yes (PALPITATIONS) COPD: No HTN: Yes Psychiatric Problems: Yes (BIPOLAR- NO MEDS) - Immunization History Td Vaccination: Yes Immunization Up to Date: Yes - Suicide/Smoking/Psychosocial Hx Smoking Status: No Smoking History: Never smoked Years of Tobacco Use: 0 Have you smoked in the past 12 months: No Number of Cigarettes Smoked Daily: 0 Cigars Per Day: 0 Information on smoking cessation initiated: No Hx Alcohol Use: No Drug/Substance Use Hx: No Substance Use Type: None *Physical Exam - Vital Signs Last Vital Signs Temp Pulse Resp BP Pulse Ox 98.4 F 73 18 124/73 100 12/01/18 15:58 12/01/18 15:58 12/01/18 15:58 12/01/18 15:58 12/01/18 15:58 - Physical Exam General Appearance: No: Apparent Distress HEENT: positive: Normal Voice, Pharynx Normal, Other (no tongue swelling, no angioedema). negative: Muffled/Hoarse voice Respiratory/Chest: positive: Lungs Clear, Normal Breath Sounds. negative: Respiratory Distress Cardiovascular: positive: Regular Rhythm, Regular Rate, S1, S2. negative: Murmur Integumentary: negative: Rash Neurologic: positive: Alert, Normal Mood/Affect ED Treatment Course - Medications Given in the ED: ED Medications Discontinued Medications Generic Name Dose Route Start Last Admin Trade Name Freq PRN Reason Stop Dose Admin Diphenhydramine HCl 50 mg 12/01/18 16:04 12/01/18 16:14 Benadryl - PO 12/01/18 16:05 50 mg ONCE ONE Administration Medical Decision Making - Medical Decision Making 28 y/o F hx of HTN presents with episode of tongue swelling which started around 3:45 PM today while she was at work. Patient states she has had 3 episodes of this in the past and was seen for this last time in September 2018, during which time she was given Benadryl and Pepcid. States she was referred to ENT/allergy doctor but did not follow-up as states she thought it was due to mold along wall; after mold was removed, she did not experience symptoms until today. Patient has an Epi-pen in case (prescribed from a prior visit), but has not used it yet. Did not take any meds and feels the tongue swelling is resolving on its own. Denies fever, sob, cp, abd pain, n/v, use of new meds/food /products. Currently in no respiratory distress Patient does not want to take Benadryl as already feeling fine and states is driving home Will monitor 12/01/18 16:36 Patient did not want to take Benadryl now; states she will take it at home Currently feels fine Patient was given information for ENT and allergy doctor to f/u with Return precautions given Stable for dc 12/01/18 17:00 *DC/Admit/Observation/Transfer Diagnosis at time of Disposition: Tongue swelling - Discharge Dispostion Disposition: HOME Condition at time of disposition: Stable - Referrals Referrals: Edward Allison MD [Staff Physician] - Call tomorrow - Patient Instructions Additional Instructions: Thank you for choosing [facility]. It was a pleasure taking care of you. Take Benadryl as needed You were referred to ENT/allergy doctor for further evaluation Return to the Emergency Department if your symptoms worsen or persist, difficulty breathing, swelling of lips/tongue, throat closing sensation or other concerning symptoms. - Post Discharge Activity
== END 2018-12-01 17:08 | disposition home or self-care (01) ==
LOC: JERFT 15:56
DX: K14.9 Disease of tongue, unspecified (principal); I10 Essential (primary) hypertension
CPT/HCPCS: 99282-25

== ENCOUNTER 2018-12-02 19:45 | Emergency (ER) | payer OTHER ==
--- NOTE | 2018-12-02 19:55 | PDOC ---
Rapid Medical Evaluation Chief Complaint: Urinary Problem Time Seen by Provider: 12/02/18 19:53 Medical Evaluation: Allergies Allergy/AdvReac Type Severity Reaction Status Date / Time No Known Allergies Allergy Verified 12/01/18 16:12 12/02/18 19:54 I have performed a brief in-person evaluation of this patient. The patient presents with a chief complaint of: "I have a urinary tract infection". (+)burning/pain on urination with frequency/urgency, hesitancy on urination, (+)suprapubic pressure. I have ordered the following: Pyridium, UA, UCG, Ucx The patient will proceed to the ED for further evaluation. Discharge Disposition - Diagnosis Dysuria - Referrals - Patient Instructions - Post Discharge Activity
[2018-12-02 19:56] VITALS: BP 122/88; PULSE 60; TEMP 98.7; BMI 22.2
[2018-12-02] MEDS ORDERED: PHENAZOPYRIDINE HCL 100 MG TABLET (FP) PO ONE (19:56)
--- NOTE | 2018-12-02 21:22 | PDOC ---
History of Present Illness - General Chief Complaint: Urinary Problem Stated Complaint: URINARY PROBLEM Time Seen by Provider: 12/02/18 19:53 History Source: Patient - History of Present Illness Initial Comments: 12/02/18 21:48 28 YEAR OLD FEMALE WITH dysuria and olgiuria x 2 days with suprapubic pain. patient denies fever/ chills, flank pain, nausea/ vomiting. denies STI exposure, . reports same partner PmHX: hypertension, UTIs 12/02/18 21:51 Past History - Past Medical History Allergies/Adverse Reactions: Allergies Allergy/AdvReac Type Severity Reaction Status Date / Time No Known Allergies Allergy Verified 12/02/18 19:55 Home Medications: Ambulatory Orders Cefuroxime Axetil [Cefuroxime] 500 mg PO BID #20 tablet 12/02/18 Phenazopyridine HCl [Pyridium] 100 mg PO TID #6 tablet 12/02/18 Asthma: Yes Cardiac Disorders: Yes (PALPITATIONS) COPD: No Disorders: Yes (frequent UTI) HTN: Yes Psychiatric Problems: Yes (BIPOLAR- NO MEDS) - Immunization History Td Vaccination: Yes Immunization Up to Date: Yes - Suicide/Smoking/Psychosocial Hx Smoking Status: No Smoking History: Never smoked Years of Tobacco Use: 0 Have you smoked in the past 12 months: No Number of Cigarettes Smoked Daily: 0 Cigars Per Day: 0 Hx Alcohol Use: No Drug/Substance Use Hx: No Substance Use Type: None Review of Systems - Review of Systems Able to Perform ROS?: Yes Is the patient limited Albanian proficient: No Constitutional: No: Symptoms Reported, See HPI, Chills, Diaphoresis, Fever, Loss of Appetite, Malaise, Night Sweats, Weakness, Weight Stable, Unintentional Wgt. Loss, Unexplained wgt Loss, Other ABD/GI: Yes: Other (suprapubic pain) : Yes: Burning, Dysuria Musculoskeletal: No: Symptoms Reported, See HPI, Back Pain, Gout, Joint Pain, Joint Swelling, Muscle Pain, Muscle Weakness, Neck Pain, Joint Stiffness, Other *Physical Exam - Vital Signs Last Vital Signs Temp Pulse Resp BP Pulse Ox 98.7 F 60 18 122/88 99 12/02/18 19:53 12/02/18 19:53 12/02/18 19:53 12/02/18 19:53 12/02/18 19:53 - Physical Exam General Appearance: Yes: Appropriately Dressed Gastrointestinal/Abdominal: positive: Normal Bowel Sounds, Tender (suprapubic area), Soft Musculoskeletal: positive: Normal Inspection. negative: CVA Tenderness Integumentary: positive: Normal Color, Dry, Warm Neurologic: positive: Fully Oriented, Alert, Normal Mood/Affect Progress Note - Progress Note Progress Note: A: uti P: pyridium UA UCX urine *DC/Admit/Observation/Transfer Diagnosis at time of Disposition: UTI (urinary tract infection) Qualifiers: Urinary tract infection type: acute cystitis Hematuria presence: with hematuria Qualified Code(s): N30.01 - Acute cystitis with hematuria - Discharge Dispostion Disposition: HOME - Prescriptions Prescriptions: Cefuroxime Axetil [Cefuroxime] 500 mg PO BID #20 tablet Phenazopyridine HCl [Pyridium] 100 mg PO TID #6 tablet - Referrals Referrals: Edward Brown MD [Staff Physician] - Call tomorrow - Patient Instructions Printed Discharge Instructions: Urinary Tract Infection Additional Instructions: Drink plenty of fluids Take ibuprofen every 6 hours as needed for pain You may take Pyridium for the burning of urination. it can turn your her urine orange and can make you sweat orange Take cefuroxime as prescribed Follow-up with your primary care doctor as soon as possible. You need to repeat urine test once your antibiotic is completed. We will call you if you're antibiotic needs to be changed. - Post Discharge Activity Forms/Work/School Notes: Back to Work
[2018-12-02] MEDS ORDERED: PHENAZOPYRIDINE HCL 100 MG TABLET (FP) ONE (21:23)
[2018-12-02 21:57] LABS: EPI CELLS 10.6 /HPF (0-5/HPF); HYALINE CASTS 13 /lpf (0-8); PH,URINE 5.5 (5.0-8.0); URINE APPEARANCE TURBID; URINE BACTERIA 2027.8 /hpf (NEGATIVE); URINE BILIRUBIN NEGATIVE (NEGATIVE); URINE COLOR DK YELLOW; URINE GLUCOSE (UA) NEGATIVE (NEGATIVE); URINE KETONE 1+ (NEGATIVE); URINE LEUK ESTERASE 2+ (NEGATIVE); URINE NITRITE POSITIVE (NEGATIVE); URINE PROTEIN 2+ (NEGATIVE); URINE RBC 86 /hpf (0-4); URINE WBC 1316 /hpf (0-5)
[2018-12-02] MEDS ORDERED: CEFUROXIME AXETIL 500 MG TABLET PO ONE (21:57)
== END 2018-12-02 22:23 | disposition home or self-care (01) ==
LOC: JERFT 19:45
DX: N30.01 Acute cystitis with hematuria (principal); Z87.440 Personal history of urinary (tract) infections
CPT/HCPCS: 81003; 84703; 87086; 87186; 99282-25

== ENCOUNTER 2019-03-22 13:45 | Emergency (ER) | payer OTHER ==
[2019-03-22 13:50] VITALS: BP 128/87; PULSE 60; TEMP 98; BMI 20.9
--- NOTE | 2019-03-22 14:52 | PDOC ---
History of Present Illness - General Chief Complaint: Choking Sensation Stated Complaint: THROAT SWELLING Time Seen by Provider: 03/22/19 14:18 - History of Present Illness Initial Comments: 03/22/19 14:42 CHIEF COMPLAINT: throat swelling HISTORY OF PRESENT ILLNESS: 28 yo F with hx of "tongue swelling" presents to fast track with concern for swelling to her throat. Patient reports she felt itching to her hands and feet last night and woke up in the middle of then night feeling like her throat was swollen. Patient reports that she jumped in the shower hoping it would get better, but when she felt like it was difficulty for her to swallow she took a Benadryl. Upon arrival to fast track she reports that her throat swelling has completely resolved. Patient states she has had multiple instances of these types of reactions recently and has an appointment for an warp tying machine knotter tomorrow. No recent travel or sick contacts. PAST MEDICAL HISTORY: Denies past medical history FAMILY HISTORY: Denies SOCIAL HISTORY: Denies tobacco, alcohol, illicit drug use. SURGICAL HISTORY: Denies ALLERGIES: No known drug allergies REVIEW OF SYSTEMS General/Constitutional: Denies fever or chills. Denies weakness, weight change. HEENT: Throat swelling earlier, resolved now. Denies change in vision. Denies ear pain or discharge. Denies sore throat. Cardiovascular: Denies chest pain or shortness of breath. Respiratory: Denies cough, wheezing, or hemoptysis. Gastrointestinal: Denies nausea, vomiting, diarrhea or constipation. Denies rectal bleeding. Genitourinary: Denies dysuria, frequency, or change in urination. Musculoskeletal: Denies joint or muscle swelling or pain. Denies neck or back pain. Skin and breasts: Denies rash or easy bruising. Neurologic: Denies headache, vertigo, loss of consciousness, or loss of sensation. Psychiatric: Denies depression or anxiety. PHYSICAL EXAM General Appearance: Well-appearing, appropriately dressed. No apparent distress , no intoxication. HEENT: EOMI, PERRLA, normal ENT inspection, normal voice, TMs normal, pharynx normal. No conjunctival pallor. No photophobia, scleral icterus. Neck: Supple. Trachea midline. No tenderness, rigidity, carotid bruit, stridor , lymphadenopathy, or thyromegaly. Respiratory/Chest: Lungs CTAB. No shortness of breath, chest tenderness, respiratory distress, accessory muscle use. No crackles, rales, rhonchi, stridor , wheezing, dullness Cardiovascular: RRR. S1, S2. No JVD, murmur, bradycardia, tachycardia. Vascular Pulses: Dorsalis-Pedis (R): 2+, Dorsalis-Pedis (L): 2+ Gastrointestinal/Abdominal: Normal bowel sounds. Abdomen soft, non-distended. No tenderness or rebound tenderness. No organomegaly, pulsatile mass, guarding , hernia, hepatomegaly, splenomegaly. Lymphatic: No adenopathy, tenderness. Musculoskeletal/Extremities: Normal inspection. FROM of all extremities, normal capillary refill. Pelvis Stable. No CVA tenderness. No tenderness to extremities, pedal edema, swelling, erythema or deformity. Integumentary: Appropriate color, dry, warm. No cyanosis, erythema, jaundice or rash Neurologic: type bar and segment assembler II-XII intact. Fully oriented, alert. Appropriate mood/affect. Motor strength 5/5. No appreciable EOM palsy, facial droop or sensory deficit. Past History - Past Medical History Allergies/Adverse Reactions: Allergies Allergy/AdvReac Type Severity Reaction Status Date / Time No Known Allergies Allergy Verified 03/22/19 13:50 Home Medications: Ambulatory Orders Diphenhydramine HCl [Benadryl -] 25 mg PO Q6H #28 capsule 03/22/19 EPINEPHrine (EPI-PEN 0.3MG) [Epipen 0.3MG -] 0.3 mg IM ASDIR #2 pens 03/22/19 Asthma: Yes Cardiac Disorders: Yes (PALPITATIONS) COPD: No Disorders: Yes (frequent UTI) HTN: Yes Psychiatric Problems: Yes (BIPOLAR- NO MEDS) - Immunization History Td Vaccination: Yes Immunization Up to Date: Yes - Psycho Social/Smoking Cessation Hx Smoking Status: No Smoking History: Never smoked Years of Tobacco Use: 0 Have you smoked in the past 12 months: No Number of Cigarettes Smoked Daily: 0 Cigars Per Day: 0 Hx Alcohol Use: No Drug/Substance Use Hx: No Substance Use Type: None *Physical Exam - Vital Signs Last Vital Signs Temp Pulse Resp BP Pulse Ox 98 F 60 18 128/87 100 03/22/19 13:47 03/22/19 13:47 03/22/19 13:47 03/22/19 13:47 03/22/19 13:47 Medical Decision Making - Medical Decision Making 03/22/19 14:52 28 yo F with hx of "tongue swelling" presents to fast track with concern for swelling to her throat. Patient is well appearing with no swelling to lips, tongue, throat, mouth, uvula , neck. Speaking in full sentences. Will send epipen and benadryl to pharm, patient has f/u with warp tying machine knotter tomorrow. Discharge - Discharge Information Problems reviewed: Yes Clinical Impression/Diagnosis: Allergic reaction Qualifiers: Encounter type: initial encounter Qualified Code(s): T78.40XA - Allergy, unspecified, initial encounter Condition: Stable Disposition: HOME - Admission No - Additional Discharge Information Prescriptions: Diphenhydramine HCl [Benadryl -] 25 mg PO Q6H #28 capsule EPINEPHrine (EPI-PEN 0.3MG) [Epipen 0.3MG -] 0.3 mg IM ASDIR #2 pens - Follow up/Referral Referrals: Alexsandra Madrigal MD [Staff Physician] - - Patient Discharge Instructions Patient Printed Discharge Instructions: DI for General Allergic Reactions - Post Discharge Activity
== END 2019-03-22 15:10 | disposition home or self-care (01) ==
LOC: JERFT 13:45
DX: T78.40XA Allergy, unspecified, initial encounter (principal); X58.XXXA Exposure to other specified factors, initial encounter; I10 Essential (primary) hypertension; F31.9 Bipolar disorder, unspecified; Z87.09 Personal history of other diseases of the respiratory system; Z87.440 Personal history of urinary (tract) infections
CPT/HCPCS: 99281-25

== ENCOUNTER 2019-06-23 05:43 | Emergency (ER) | payer OTHER ==
[2019-06-23 06:22] VITALS: BP 133/94; PULSE 63; TEMP 98.3; BMI 26.6
--- NOTE | 2019-06-23 07:39 | PDOC ---
History of Present Illness - General Chief Complaint: Cold Symptoms Stated Complaint: FLU -LIKE SYMPTOMS Time Seen by Provider: 06/23/19 07:14 History Source: Patient Exam Limitations: Clinical Condition - History of Present Illness Initial Comments: 06/23/19 07:34 Patient with no significant past medical history present with complaint of 2- day history of cough, nasal congestion, runny nose, body aches and mild sore throat which is improving today. Report tactile chills and fever. Patient has not taken anything for symptoms. Denies recent travel. Denies abdominal pain, nausea, vomiting, diarrhea, constipation. Denies any other symptoms Is this a multiple visit Asthma Patient?: No Timing/Duration: other (3 days) Past History - Past Medical History Allergies/Adverse Reactions: Allergies Allergy/AdvReac Type Severity Reaction Status Date / Time No Known Allergies Allergy Verified 06/23/19 06:23 Home Medications: Ambulatory Orders NK [No Known Home Medication] 06/23/19 Asthma: Yes Cardiac Disorders: Yes (PALPITATIONS) COPD: No Disorders: Yes (frequent UTI) HTN: Yes Psychiatric Problems: Yes (BIPOLAR- NO MEDS) - Immunization History Td Vaccination: Yes Immunization Up to Date: Yes - Psycho Social/Smoking Cessation Hx Smoking Status: No Smoking History: Never smoked Years of Tobacco Use: 0 Have you smoked in the past 12 months: No Number of Cigarettes Smoked Daily: 0 Cigars Per Day: 0 Hx Alcohol Use: No Drug/Substance Use Hx: No Substance Use Type: None Review of Systems - Review of Systems Able to Perform ROS?: Yes Is the patient limited Jamaican proficient: No Constitutional: Yes: Chills, Fever, Malaise HEENTM: Yes: Symptoms Reported, See HPI, Nose Congestion, Throat Pain (improved) . No: Eye Pain, Blurred Vision, Tearing, Recent change in vision, Double Vision , Cataracts, Ear Pain, Ocular Prothesis, Ear Discharge, Nose Pain, Tinnitus, Nose Bleeding, Hearing Loss, Throat Swelling, Mouth Pain, Dental Problems, Difficulty Swallowing, Mouth Swelling, Other Respiratory: Yes: Symptoms reported, See HPI, Cough. No: Orthopnea, Shortness of Breath, SOB with Exertion, SOB at Rest, Stridor, Wheezing, Productive cough, Hemoptysis, Other Cardiac (ROS): No: Symptoms Reported, See HPI, Chest Pain, Edema, Irregular Heart Rate, Lightheadedness, Palpitations, Syncope, Chest Tightness, Other ABD/GI: No: Symptoms Reported, See HPI, Constipated, Diarrhea, Nausea, Vomiting , Abdominal cramping All Other Systems: Reviewed and Negative *Physical Exam - Vital Signs Last Vital Signs Temp Pulse Resp BP Pulse Ox 98.3 F 63 18 133/94 99 06/23/19 06:20 06/23/19 06:20 06/23/19 06:20 06/23/19 06:20 06/23/19 06:20 - Physical Exam 06/23/19 07:36 GENERAL: Well developed, well nourished. Awake and alert. No acute distress. HEENT: Normocephalic, atraumatic. PERRLA, EOMI. No conjunctival pallor. Sclera are non-icteric. Moist mucous membranes. Oropharynx is clear. NECK: Supple. Full ROM. CARDIOVASCULAR: Regular rate and rhythm. No murmurs, rubs, or gallops. Distal pulses are 2+ and symmetric. PULMONARY: No evidence of respiratory distress. Lungs clear to auscultation bilaterally. No wheezing, rales or rhonchi. ABDOMINAL: Soft. Non-tender. Non-distended. No rebound or guarding. No organomegaly. Normoactive bowel sounds. MUSCULOSKELETAL Normal range of motion at all joints. SKIN: Warm and dry. Normal capillary refill. No rashes. No cyanosis. NEUROLOGICAL: Alert, awake, appropriate. Gait is normal without ataxia. PSYCHIATRIC: Cooperative. Good eye contact. Appropriate mood General Appearance: Yes: Nourished, Appropriately Dressed. No: Apparent Distress Medical Decision Making - Medical Decision Making 06/23/19 07:35 Patient with no significant past medical history present with complaint of 2- day history of cough, nasal congestion, runny nose, body aches and mild sore throat which is improving today. Report tactile chills and fever. Patient has not taken anything for symptoms. Denies recent travel. Denies abdominal pain, nausea, vomiting, diarrhea, constipation. Denies any other symptoms Clinical exam unremarkable with lungs clear to auscultation bilateral and no pharyngeal erythema. Patient present with child who has fevers today. Child been tested for influenza and patient will be treated based on results 06/23/19 08:57 Child's rapid flu is negative. Patient symptoms likely viral URI stable for discharge on Tessalon Perles as needed for cough, Medrol pack for chest congestion Atrovent nasal spray for nasal congestion with advised to increase fluid intake and follow-up with PCP Discharge - Discharge Information Problems reviewed: Yes Clinical Impression/Diagnosis: Influenza-like illness URI (upper respiratory infection) Qualifiers: URI type: unspecified viral URI Qualified Code(s): J06.9 - Acute upper respiratory infection, unspecified Condition: Stable Disposition: HOME - Admission No - Follow up/Referral - Patient Discharge Instructions Patient Printed Discharge Instructions: DI for Viral Upper Respiratory Infection -- Adult Additional Instructions: Your symptoms likely from viral infection. Take prescribed medication as prescribed for cough and congestion. Increase fluid intake. Follow-up with primary care as needed - Post Discharge Activity
== END 2019-06-23 08:55 | disposition home or self-care (01) ==
LOC: JER 05:43
DX: J11.1 Influenza due to unidentified influenza virus with other respiratory manifestations (principal); I10 Essential (primary) hypertension; F31.9 Bipolar disorder, unspecified; Z87.09 Personal history of other diseases of the respiratory system; Z87.440 Personal history of urinary (tract) infections; Z86.79 Personal history of other diseases of the circulatory system
CPT/HCPCS: 99281-25

== ENCOUNTER 2019-07-13 10:13 | Emergency (ER) | payer OTHER ==
[2019-07-13 10:21] VITALS: BP 121/84; PULSE 87; TEMP 98.1; BMI 25.0
[2019-07-13] MEDS ORDERED: DIPHTH,PERTUSS(ACELL),TET 0.5 ML DISP.SYRIN IM ONE ×2 (12:27→12:37)
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
== END 2019-07-13 12:41 | disposition home or self-care (01) ==
LOC: JERFT 10:13
PROC: 3E0234Z Introduction of Serum, Toxoid and Vaccine into Muscle, Percutaneous Approach (ICD-10-PCS; principal; 2019-07-13)
PROC: 0HQGXZZ Repair Left Hand Skin, External Approach (ICD-10-PCS; 2019-07-13)
DX: S61.412A Laceration without foreign body of left hand, initial encounter (principal); Y00.XXXA Assault by blunt object, initial encounter; Y93.89 Activity, other specified; Y92.89 Other specified places as the place of occurrence of the external cause
CPT/HCPCS: 12001-25; 90471; 90715; 99282-25

== ENCOUNTER 2020-08-07 18:57 | Emergency (ER) | payer OTHER ==
[2020-08-07 19:11] VITALS: BP 123/84; PULSE 72; TEMP 98.2; BMI 26.1
[2020-08-07] MEDS ORDERED: ONDANSETRON 4 MG/2 ML VIAL IVPUSH ONE (20:41)
[2020-08-07] MEDS ORDERED: SODIUM CHLORIDE 1,000 ML IV STA (20:41)
[2020-08-07] MEDS ORDERED: ONDANSETRON 4 MG/2 ML VIAL ONE (20:46)
[2020-08-07 21:20] LABS: EOS % 0.3 % (0-4.5); HEMATOCRIT 39.4 % (32.4-45.2); HEMOGLOBIN 13.3 GM/dL (10.7-15.3); LYMPH % 33.6 % (8-40); MCH 30.7 pg (25.7-33.7); MCHC 33.7 g/dl (32.0-36.0); MEAN CELL VOLUME 91.3 fl (80-96); MONO % 2.9 % (3.8-10.2); NEUT % 62.2 % (42.8-82.8); PLATELET COUNT 240 K/MM3 (134-434); RBC 4.32 M/mm3 (3.60-5.2); RDW 13.4 % (11.6-15.6); WHITE BLOOD COUNT 8.5 K/mm3 (4.0-10.0)
[2020-08-07 21:23] LABS: EPI CELLS 21 /uL (0-25.1); HYALINE CASTS 4 /uL (0-3.1); URINE APPEARANCE CLEAR; URINE BACTERIA 629 /uL (0-1359); URINE BILIRUBIN 1+ (NEGATIVE); URINE COLOR DK YELLOW; URINE GLUCOSE (UA) NEGATIVE (NEGATIVE); URINE KETONE 2+ (NEGATIVE); URINE LEUK ESTERASE NEGATIVE (NEGATIVE); URINE NITRITE NEGATIVE (NEGATIVE); URINE PROTEIN 1+ (NEGATIVE); URINE RBC 247 /uL (0-23.9); URINE WBC 13 /uL (0-25.8)
== END 2020-08-07 22:31 | disposition home or self-care (01) ==
LOC: JER 18:57
PROC: 3E033GC Introduction of Other Therapeutic Substance into Peripheral Vein, Percutaneous Approach (ICD-10-PCS; principal; 2020-08-07)
PROC: 3E0337Z Introduction of Electrolytic and Water Balance Substance into Peripheral Vein, Percutaneous Approach (ICD-10-PCS; 2020-08-07)
DX: O26.851 Spotting complicating pregnancy, first trimester (principal); Z3A.08 8 weeks gestation of pregnancy
CPT/HCPCS: 36415; 76817-TC; 80307; 81003; 84702; 85025; 86850; 86900; 86901; 99284-25

== ENCOUNTER 2020-08-12 09:49 | Emergency (ER) | payer OTHER ==
[2020-08-12 09:58] VITALS: BP 128/92; PULSE 78; TEMP 99.1; BMI 27.4
== END 2020-08-12 11:12 | disposition home or self-care (01) ==
LOC: JERFT 09:49
DX: O03.9 Complete or unspecified spontaneous abortion without complication (principal)
CPT/HCPCS: 36415; 84702; 99284-25